=== PATIENT | male | born 1975 | race Caucasian/White ===

== ENCOUNTER 2018-06-02 15:13 | Outpatient (CLI) | payer OTHER ==
--- NOTE | 2018-06-02 16:39 | ULT ---
SCROTAL ULTRASOUND WITH DOPPLER: 06/02/18 PROVIDED CLINICAL HISTORY: Epididymal cyst. FINDINGS: No comparisons. The right testicle measures about 4.2 x 3.4 x 3.0 cm and demonstrates a normal tena scale sonographic appearance. Right epididymis measures about 1.7 x 1.2 x 0.8 cm without focal abnormality evident. Left testicle measures about 3.7 x 3.6 x 2.6 cm and demonstrates a normal tena scale sonographic appe arance. The left epididymis appears heterogeneous and enlarged measuring about 3.4 cm. There are bilateral hydroceles, small on the right and moderate on the left. There is a 3 mm isoechoi c structure at the medial periphery of the left testicle which may reflect a testicular appendage. IMPRESSION: 1. Enlarged and heterogeneous appearance to the left epididymis, which could reflect epididymiti s. 2. Bilateral hydroceles, left greater than right. POS: [facility]
== END 2018-06-02 15:14 | disposition home or self-care (01) ==
LOC: BICULT 15:13
PROVIDERS: ATTEND Family Medicine
DX: N50.3 Cyst of epididymis (principal); N43.3 Hydrocele, unspecified
CPT/HCPCS: 76870; 93976

== ENCOUNTER 2022-05-21 15:44 | Outpatient (CLI) | payer BC ==
[2022-05-21 16:43] LABS: #Eosinphils 0.1 10x3/uL (0.0-0.5); #Monocytes 0.5 10x3/uL (0.0-1.1); #Neutrophils 4.3 10x3/uL (1.5-8.4); %Basophils 0.3 % (0.0-2.0); %Eosinophils 1.1 % (0.0-6.0); %Monocytes 7.3 % (0.0-10.0); %Neutrophils 60.7 % (40.0-75.0); Hemoglobin 16.5 g/dL (13.5-17.5); Mean Corpuscular HGB CONC 36.1 g/dL (32.0-36.0); Mean Corpuscular Hemoglobin 31.3 pg (27.0-33.0); Mean Corpuscular Volume 86.6 fl (81.2-95.1); Platelet Count 333 10x3/uL (150-450); RBC Distribution Width 12.2 % (11.5-14.5); Red Blood Cell (RBC) Count 5.28 10x6/uL (4.32-5.72)
== END 2022-05-21 15:45 | disposition home or self-care (01) ==
LOC: LABBT 15:44
PROVIDERS: ATTEND Surgery
DX: Z01.812 Encounter for preprocedural laboratory examination (principal); K40.90 Unilateral inguinal hernia, without obstruction or gangrene, not specified as recurrent; L91.8 Other hypertrophic disorders of the skin
CPT/HCPCS: 85025; 93005; 93010

== ENCOUNTER 2022-05-24 05:53 | Day surgery (SDC) | payer BC ==
[2022-05-24] MEDS ORDERED: Bupivacaine/Epinephrine 0.25% 30 ML VIAL ONE (06:43)
[2022-05-24] MEDS ORDERED: Lidocaine 1% (PF) 30 ML VIAL ONE (06:43)
[2022-05-24] MEDS ORDERED: fentaNYL PF 100 MCG/2 ML SYRINGE ONE (07:03)
[2022-05-24] MEDS ORDERED: CEFAZOLIN 2 GM VIAL ONE (07:34)
[2022-05-24] MEDS ORDERED: Sodium Chloride 0.9% 100 ML ONE (07:34)
[2022-05-24] MEDS ORDERED: Midazolam HCl 2 mg/2 ml Vial ONE (07:54)
[2022-05-24] MEDS ORDERED: PROPOFOL 200 MG/20 ML VIAL ONE (08:04)
[2022-05-24] MEDS ORDERED: Ketorolac Tromethamine 30 MG/ML VIAL ONE (08:04)
[2022-05-24] MEDS ORDERED: Ondansetron PF 4 MG/2 ML Vial ONE (08:04)
[2022-05-24] MEDS ORDERED: ePHEDrine 50 MG/ML VIAL ONE (08:04)
[2022-05-24] MEDS ORDERED: Promethazine HCl 25 MG/ML VIAL ONE (09:43)
== END 2022-05-24 11:04 | disposition home or self-care (01) ==
LOC: SDC 05:53
PROVIDERS: ATTEND Surgery
DX: K40.90 Unilateral inguinal hernia, without obstruction or gangrene, not specified as recurrent (principal); L82.1 Other seborrheic keratosis; L91.8 Other hypertrophic disorders of the skin; Z79.890 Hormone replacement therapy; Z79.899 Other long term (current) drug therapy
CPT/HCPCS: 88304; C1781; J1885; J2001; J2250; J2405; J2550; J2704; J3490

== ENCOUNTER 2023-12-30 09:18 | Outpatient (CLI) | payer OTHER | END 2023-12-30 09:19 | disposition home or self-care (01) | LOC: ULT 09:18 | PROVIDERS: ATTEND Family Medicine | DX: R10.13 Epigastric pain (principal); R16.0 Hepatomegaly, not elsewhere classified; R93.2 Abnormal findings on diagnostic imaging of liver and biliary tract | CPT/HCPCS: 76700 ==